=== PATIENT | male | born 2000 | race Caucasian/White ===

== ENCOUNTER 2021-02-02 14:55 | Emergency (ER) | payer OTHER, SELFPAY ==
[2021-02-02 15:05] VITALS: BP 128/62; PULSE 80; RESP 16; TEMP 36.9; O2SAT 100
--- NOTE | 2021-02-02 15:32 | ED.BACK ---
HPI - Back Pain/Injury General Chief Complaint: Back Pain/Injury Stated Complaint: Lower Back pain Time Seen by Provider: 02/02/21 15:33 Source: patient Mode of arrival: ambulatory Limitations: no limitations History of Present Illness HPI Narrative: Yakov Alvarez is a 20-year-old male with a history of colon cancer, and urinary burning who comes to [facility] with left flank pain which during the discussion of his symptoms stated that his continues to have urinary pain. His primary care physician worked him up this week for STDs for urinary tract infection dementia of blood work and all were negative the PCP told him to increase his fluid intake and that the symptoms should resolve However they have not and he also was concerned that he now had left flank pain left for to be seen Related Data Allergies Allergy/AdvReac Type Severity Reaction Status Date / Time Penicillins Allergy Swelling Verified 02/02/21 15:26 Review of Systems Review of Systems: CONSTITUTIONAL: Denies fever, chills, sweats. EYES: Denies visual changes, redness, discharge. ENT: Denies rhinorrhea, congestion, sore throat, otalgia. CARDIOVASCULAR: Denies chest pain, palpitations, edema. RESPIRATORY: Denies dyspnea, wheezing, cough GASTROINTESTINAL: Denies abdominal pain, nausea, vomiting, diarrhea. GENITOURINARY: Denies dysuria, hematuria, abnormal discharge. Has burning at the end of urination SKIN: Denies rash or itching. NEUROLOGIC: Denies numbness, or focal weakness. PSYCHIATRIC: Denies anxiety or depression. PMFSH Past Medical History Medical History (Updated 02/02/21 @ 15:50 by María Melara CNP) Colon cancer Squires syndrome Social History Social History (Updated 02/02/21 @ 15:46 by María Melara CNP) Smoking status: Never smoker Alcohol intake: current Comments At time of signature, I agree with nursing past medical, surgical, social and family history. There is no relevant family history pertinent to the presenting complaint. Exam Narrative: GENERAL: This is a well-nourished, well-developed patient, in mild distress. HEAD: normocephalic, atraumatic. EYES: Sclera clear/white. Vision is grossly intact. EARS: External ears normal, Hearing grossly intact. NOSE: External nose normal without nasal discharge, nares without redness, no rhinorrhea. THROAT: Mucous membranes moist, NECK: Neck supple, n CARDIOVASCULAR: Regular rate and rhythm without murmurs, gallops, or rubs. RESPIRATORY: Clear to auscultation. Breath sounds equal bilaterally. No wheezes, rales, or rhonchi. GASTROINTESTINAL: Abdomen soft, non-tender, he has no reproduction of left flank tenderness with twisting or bending SKIN: warm, intact with no suspicious lesions or rash, good texture and turgor. NEURO: awake, alert, and oriented to person, place and time. There were no obvious focal neurologic abnormalities. Steady gait EXTREMITIES: Normal range of motion. BACK: Nontender without deformity Course Course Emergency Course: Patient comes with complaints of urinary burning and left flank pain He had a negative urine on Thursday from his primary care physician but continues to have burning so we will treat with Cipro 500 mg twice daily x5 days for dysuria Referred to urology Vital Signs Vital signs: Vital Signs Temperature 98.5 F 02/02/21 15:05 Pulse Rate 80 02/02/21 15:05 Respiratory Rate 16 02/02/21 15:05 Blood Pressure 128/62 02/02/21 15:05 Pulse Oximetry 100 02/02/21 15:05 Temperature 98.5 F 02/02/21 15:05 Pulse Rate 80 02/02/21 15:05 Respiratory Rate 16 02/02/21 15:05 Blood Pressure 128/62 02/02/21 15:05 Pulse Oximetry 100 02/02/21 15:05 MDM - Back Pain/Injury Differential Diagnosis Differential diagnosis: Likely renal colic, pyelonephritis and other (UTI versus cystitis) Critical Care Time Critical Care Time Critical Care Time: No Discharge Plan Discharge Clinical Impression: Cystitis Patient Dis
== END 2021-02-02 15:50 | disposition home or self-care (01) ==
PROVIDERS: Emergency Provider Nurse Practitioner; PCP Nurse Practitioner Family
DX: N30.90 Cystitis, unspecified without hematuria (principal); Z85.038 Personal history of other malignant neoplasm of large intestine; Z15.09 Genetic susceptibility to other malignant neoplasm
CPT/HCPCS: 99213; G0463